=== PATIENT | male | born 1960 | race Caucasian/White ===

== ENCOUNTER 2021-02-20 10:46 | Outpatient (CLI) | payer BC | END 2021-02-20 10:47 | disposition home or self-care (01) | LOC: CSHCT 10:46 | PROVIDERS: ATTEND Family Medicine | DX: R31.9 Hematuria, unspecified (principal); N40.0 Benign prostatic hyperplasia without lower urinary tract symptoms | CPT/HCPCS: 74178 ==

== ENCOUNTER 2021-06-09 09:08 | Emergency (ER) | payer BC ==
[2021-06-09] MEDS ORDERED: EPINEPHrine 1 MG/ML AMP ONE (09:26)
[2021-06-09] MEDS ORDERED: Famotidine/PF 20 mg/2ml Vial ONE ×2 (09:30→19:29)
[2021-06-09] MEDS ORDERED: methylPREDNISolone Sod Succ/PF 125 MG/2 ML VIAL ONE (09:30)
[2021-06-09] MEDS ORDERED: diphenhydrAMINE 50 MG/ML VIAL ONE ×2 (09:30→17:53)
[2021-06-09 12:27] LABS: Hemoglobin 17.2 g/dL (13.5-17.5); Mean Corpuscular HGB CONC 33.5 g/dL (32.0-36.0); Mean Corpuscular Hemoglobin 29.6 pg (27.0-33.0); Mean Corpuscular Volume 88.1 fl (81.2-95.1); Mean Platelet Volume 9.4 fl (7.4-10.4); Platelet Count 173 10x3/uL (150-450); RBC Distribution Width 13.3 % (11.5-14.5); Red Blood Cell (RBC) Count 5.82 10x6/uL (4.32-5.72)
[2021-06-09 12:38] LABS: ALT (SGPT) 19 U/L (8-55); AST (SGOT) 18 U/L (5-34); Albumin 3.8 g/dL (3.5-5.0); Alkaline Phosphatase 62 U/L (40-110); Anion Gap 15 mmol/L (10-20); BUN (Urea Nitrogen) 26 mg/dL (8.4-25.7); Bilirubin, Total 0.5 mg/dL (0.2-1.2); Calc. Creatinine Clearance 0 mL/min (70-130); Calcium 9.1 mg/dL (7.8-10.44); Carbon Dioxide 20 mmol/L (22-29); Chloride 110 mmol/L (98-107); Globulin 2.3 g/dL (2.4-3.5); Glucose 207 mg/dL (70-105); Magnesium 2.1 mg/dL (1.6-2.6); Protein, Total 6.1 g/dL (6.0-8.3); Sodium 141 mmol/L (136-145)
[2021-06-09 12:58] LABS: Band 10 % (5-11); Eosinophils 2 % (0-10); Lymphocytes 4 % (21-51); Monocytes 3 % (0-10); Myelocyte 2 % (0-0); Reactive Lymphocytes 2 % (0-10)
[2021-06-09 13:00] LABS: MDiff Complete? YES; Manual Diff?? YES; Neutrophil 77 % (42-75)
[2021-06-09 13:02] LABS: Platelet Morphology Comment Appears Adequate
[2021-06-09] MEDS ORDERED: Meclizine HCl 25 MG TAB ONE (17:14)
[2021-06-09] MEDS ORDERED: methylPREDNISolone Sod Succ 40 MG VIAL ONE (22:15)
== END 2021-06-09 14:06 | disposition home or self-care (01) ==
LOC: CSHERS 09:08
DX: T78.2XXA Anaphylactic shock, unspecified, initial encounter (principal); S00.31XA Abrasion of nose, initial encounter; S00.81XA Abrasion of other part of head, initial encounter; E86.0 Dehydration; I10 Essential (primary) hypertension; E78.2 Mixed hyperlipidemia; W19.XXXA Unspecified fall, initial encounter; Y93.E1 Activity, personal bathing and showering; Y92.009 Unspecified place in unspecified non-institutional (private) residence as the place of occurrence of the external cause
CPT/HCPCS: 70450; 71045; 80053; 83735; 84484; 85025; 93005; J0171; J1200; J2920; J2930; S0028